=== PATIENT | female | born 1965 | race Asian ===

== ENCOUNTER → 2017-06-29 | Outpatient (CLI) | payer OTHER | END | disposition home or self-care (01) | LOC: CFH 13:38 | PROVIDERS: ATTEND Family Medicine | DX: M17.11 Unilateral primary osteoarthritis, right knee (principal); M25.761 Osteophyte, right knee; R07.9 Chest pain, unspecified | CPT/HCPCS: 71020 ==

== ENCOUNTER → 2018-04-27 | Outpatient (CLI) | payer BC | END | disposition home or self-care (01) | LOC: CFH 10:54 | PROVIDERS: ATTEND Specialist | DX: Z01.419 Encounter for gynecological examination (general) (routine) without abnormal findings (principal); Z12.31 Encounter for screening mammogram for malignant neoplasm of breast | CPT/HCPCS: 77063; 77067 ==

== ENCOUNTER 2019-08-30 06:12 | Day surgery (SDC) | payer BC ==
[~2019-08-30] VITALS: Ht 162.6 cm; Wt 60.6 kg
[2019-08-30] MEDS ORDERED: LACTATED RINGERS 1,000 ML IV SCH (07:23)
[2019-08-30] MEDS ORDERED: LIDOCAINE-MPF 1%, 2ML INFIL ONE (07:30)
[2019-08-30] MEDS ORDERED: INSU100V8 SQ (07:35)
[2019-08-30] MEDS ORDERED: INSU100C SQ-INSULIN (07:35)
[2019-08-30] MEDS ORDERED: LISI5TAB7 PO (07:35)
[2019-08-30] MEDS ORDERED: MULT-658 PO (07:35)
[2019-08-30] MEDS ORDERED: ATOR40TA78 PO (07:35)
[2019-08-30 07:36] VITALS: BP 122/81
[2019-08-30 08:18] LABS: ALANINE AMINOTRANSFERASE 144 U/L (12-78); ALBUMIN 3.6 g/dL (3.4-5.0); ANION GAP 7 mmol/L (5-15); CALCIUM 8.9 mg/dL (8.5-10.1); CHLORIDE 106 mmol/L (98-107)
[2019-08-30 08:20] LABS: ALKALINE PHOSPHATASE 169 U/L (45-117); BILIRUBIN,TOTAL 0.6 mg/dL (0.2-1.0); TOTAL PROTEIN 7.7 g/dL (6.4-8.2)
[2019-08-30] MEDS ORDERED: PROPOFOL 50 ML ONE (09:26)
[2019-08-30] MEDS ORDERED: PROPOFOL 10 MG/ML, 20ML ONE (09:27)
[2019-08-30] MEDS ORDERED: DIPHENHYDRAMINE 50 MG/ML, 1ML IVPush PRN (09:30)
[2019-08-30] MEDS ORDERED: ONDANSETRON 2MG/ML, 2ML IV PRN (09:30)
[2019-08-30] MEDS ORDERED: DIAZEPAM 5 MG/ML, 2ML IVPush PRN (09:30)
[2019-08-30] MEDS ORDERED: ONDANSETRON ODT 8 MG PO PRN (09:30)
[2019-08-30] MEDS ORDERED: FENTANYL PF 100 MCG/2ML IV PRN (09:30)
[2019-08-30] MEDS ORDERED: PROMETHAZINE 25 MG/ML, 1ML IV PRN (09:30)
[2019-08-30] MEDS ORDERED: EPHEDRINE 50 MG/ML, 1ML IVPush PRN (09:30)
[2019-08-30] MEDS ORDERED: EPHEDRINE 50 MG/ML, 1ML IM PRN (09:30)
[2019-08-30] MEDS ORDERED: MEPERIDINE/PF 25MG/ML,1ML IVPush PRN (09:30)
== END 2019-08-30 11:50 | disposition home or self-care (01) ==
LOC: OUT 06:12
PROVIDERS: ATTEND Internal Medicine
DX: Z12.11 Encounter for screening for malignant neoplasm of colon (principal); K63.5 Polyp of colon; I10 Essential (primary) hypertension; E11.9 Type 2 diabetes mellitus without complications; G47.33 Obstructive sleep apnea (adult) (pediatric); Z79.4 Long term (current) use of insulin; Z79.899 Other long term (current) drug therapy
CPT/HCPCS: 45390; 80053; 82962; 88305; 88312; 88341; 88342; 93005; J2704; J7120

== ENCOUNTER → 2021-01-22 | Outpatient (CLI) | payer BC ==
[~2021-01-22] MED LIST: ATOR40TA78 PO; INSU100C SQ-INSULIN; INSU100V8 SQ; LISI5TAB7 PO; MULT-658 PO
== END | disposition home or self-care (01) ==
LOC: CFH 09:37
PROVIDERS: ATTEND Internal Medicine
DX: Z12.31 Encounter for screening mammogram for malignant neoplasm of breast (principal)
CPT/HCPCS: 77067